=== PATIENT | female | born 1955 | race Caucasian/White ===

== ENCOUNTER 2018-10-04 07:57 | Emergency (ER) | payer MEDICAID, OTHER ==
[2018-10-04] MEDS: CYCLOBENZAPRINE 10 MG TAB PO (08:24)
[2018-10-04] MEDS: KETOROLAC 30 MG INJ IM (08:24)
== END 2018-10-04 08:43 | disposition home or self-care (01) ==
LOC: FTE 07:57
DX: M62.830 Muscle spasm of back (principal); M54.31 Sciatica, right side
CPT/HCPCS: 96372; 99284-25